=== PATIENT | male | born 1985 | race Caucasian/White ===

== ENCOUNTER 2017-01-04 22:17 | Emergency (ER) | payer OTHER ==
[~2017-01-04] VITALS: Ht 182.9 cm; Wt 73.8 kg
[2017-01-04] MEDS ORDERED: PEN-VEE K,VEET500 MG PO (23:56)
[2017-01-04] MEDS ORDERED: NORCO 5/3251 TABLET PO (23:56)
[2017-01-05 00:01] VITALS: BP 138/71
== END 2017-01-05 00:05 | disposition home or self-care (01) ==
LOC: EME 22:17
DX: K04.7 Periapical abscess without sinus (principal); K02.9 Dental caries, unspecified
CPT/HCPCS: 99281; 99284